=== PATIENT | male | born 1980 | race Caucasian/White ===

== ENCOUNTER 2021-05-25 11:05 | Emergency (ER) | payer SELFPAY ==
[2021-05-25 11:13] VITALS: BP 153/96; PULSE 65; TEMP 97.8; BMI 25.8
[2021-05-25] MEDS ORDERED: KETOROLAC TROMETHAMINE 60 MG/2 ML VIAL IM ONE (13:57)
[2021-05-25] MEDS ORDERED: KETOROLAC TROMETHAMINE 60 MG/2 ML VIAL ONE (14:11)
== END 2021-05-25 15:12 | disposition home or self-care (01) ==
LOC: JERFT 11:05
PROC: 3E023GC Introduction of Other Therapeutic Substance into Muscle, Percutaneous Approach (ICD-10-PCS; principal; 2021-05-25)
DX: M54.50 Low back pain, unspecified (principal)
CPT/HCPCS: 99284-25

== ENCOUNTER 2023-06-30 09:11 | Emergency (ER) | payer SELFPAY ==
[2023-06-30 09:34] VITALS: BP 131/89; PULSE 86; RESP 18; TEMP 98.9; BMI 27.0
[2023-06-30] MEDS ORDERED: CYCLOBENZAPRINE HCL 10 MG TABLET (FP) PO ONE (11:25)
[2023-06-30] MEDS ORDERED: KETOROLAC TROMETHAMINE 30 MG/1 ML VIAL IM ONE (11:25)
[2023-06-30] MEDS ORDERED: KETOROLAC TROMETHAMINE 30 MG/1 ML VIAL ONE (11:33)
[2023-06-30] MEDS ORDERED: CYCLOBENZAPRINE HCL 10 MG TABLET (FP) ONE (11:33)
== END 2023-06-30 12:16 | disposition home or self-care (01) ==
LOC: JERFT 09:11
PROC: 3E0233Z Introduction of Anti-inflammatory into Muscle, Percutaneous Approach (ICD-10-PCS; principal; 2023-06-30)
DX: M54.31 Sciatica, right side (principal); M54.50 Low back pain, unspecified
CPT/HCPCS: 99284-25

== ENCOUNTER 2024-10-06 12:56 | Emergency (ER) | payer OTHER ==
[2024-10-06 13:11] VITALS: BP 123/81; PULSE 87; RESP 20; TEMP 98.4; BMI 28.7
[2024-10-06] MEDS ORDERED: KETOROLAC TROMETHAMINE 30 MG/1 ML VIAL ONE (13:40)
[2024-10-06] MEDS ORDERED: LIDOCAINE 4% PATCH TP ONE (13:40)
[2024-10-06] MEDS: KETOROLAC TROMETHAMINE 30 MG/1 ML VIAL IM ONE (13:49)
[2024-10-06] MEDS: LIDOCAINE 4% PATCH TP ONE (13:49)
== END 2024-10-06 14:12 | disposition home or self-care (01) ==
LOC: JERFT 12:56
PROC: 3E0233Z Introduction of Anti-inflammatory into Muscle, Percutaneous Approach (ICD-10-PCS; principal; 2024-10-06)
DX: M54.50 Low back pain, unspecified (principal); G89.29 Other chronic pain; X50.0XXA Overexertion from strenuous movement or load, initial encounter
CPT/HCPCS: 99284-25